=== PATIENT | female | born 1965 | race African-American/Black ===

== ENCOUNTER 2016-11-11 10:20 | Emergency (ER) | payer OTHER ==
[~2016-11-11] VITALS: Ht 165.1 cm; Wt 79.4 kg
[2016-11-11 10:20] VITALS: BP 125/84
--- NOTE | 2016-11-11 10:45 | PHYS DOC ---
General Chief Complaint: COUGH Stated Complaint: FEVER,SOA Time Seen by MD: 10:38 Source: patient, family Exam Limitations: no limitations Problems: History of Present Illness Initial Comments Pt is 50/F to ED c/o nasal congestion with clear nasal drainage, post nasal drip with scratchy throat in mornings, sneeze/itchy eyes. Sx x 1 day, no VALLEJO/cp/ sob/fever/chills/n/v/d/focal neurodefs. Pt is nonsmoker, OTC meds with some relief. Timing/Duration: yesterday Severity: mild Location: eye (R), eye (L), nose, throat, facial Prearrival Treatment: over the counter meds Modifying Factors: worse with coughing, improves with rest Associated Symptoms: cough, malaise, nasal congestion/drainage, sore throat Past Medical History Medical History: no pertinent history Surgical History: noncontributory Social History Smoker: non-smoker Alcohol: none Drugs: none Constitutional: denies chills, denies diaphoresis, denies fever, denies malaise Eyes: see HPIdenies blindness, denies blurred vision, denies decreased acuity Ears: denies dizziness, denies pain, denies tinnitus Nose: see HPIdenies clots, denies epistaxis, denies pain Mouth: denies clots, denies pain, denies swelling Throat: see HPIdenies swelling, denies neck stiffness, denies painful swallowing, denies difficulty with fluids Respiratory: coughdenies shortness of breath, denies wheezing Cardiovascular: denies chest pain, denies palpitations, denies syncope Gastrointestinal: denies abdominal pain, denies diarrhea, denies nausea, denies vomiting Neurological: denies headache, denies numbness, denies paresthesia Physical Exam General Appearance: WD/WN, no apparent distress Eyes: bilateral eye EOMI, bilateral eye PERRL, bilateral eye normal inspection Nose: other (turbs inflamed, clear discharge no purulence) Mouth/Throat: other (clear PND no erythema/exudate, airway patent) Neck: full range of motion, supple, trachea midline Cardiovascular/Respiratory: normal peripheral pulses, no respiratory distress Neurologic/Psychiatric: cook helper meat II-XII nml as tested, no motor/sensory deficits, alert, normal mood/affect, oriented x 3 Skin: normal color, warm/dry Orders, Labs, Meds I discussed tx plan, pt expressed agreement/understanding Departure Time of Disposition: 10:39 Disposition: 01 HOME, SELF-CARE Diagnosis: allergic rhinitis, viral URI Condition: GOOD Patient Instructions: Allergic Rhinitis, Upper Respiratory Infection, Adult, [id number] Additional Instructions: OTC cetirizine (zyrtec) for am symptoms, diphenhydramine (benadryl) for pm symptoms. Aggressive hydration with gatorade, water. Rx: flonase Follow up with your doctor in 10-14 days for recheck. Return to ED with new or changing symptoms. PRAHBU CLARK DO Nov 11, 2016 10:45
[2016-11-11] MEDS ORDERED: FLUT9.9S16 NS (10:46)
== END 2016-11-11 10:51 | disposition home or self-care (01) ==
LOC: ER 10:20
DX: J06.9 Acute upper respiratory infection, unspecified (principal); J30.9 Allergic rhinitis, unspecified; H57.8 Other specified disorders of eye and adnexa
CPT/HCPCS: 99283